=== PATIENT | male | born 1965 | race Caucasian/White ===

== ENCOUNTER 2016-10-11 05:58 | Outpatient (CLI) | payer BC ==
[~2016-10-11] VITALS: Ht 170.2 cm; Wt 102.2 kg
--- NOTE | ~2016-10-11 | ECHO ---
Transthoracic Echocardiography Report (TTE) Demographics Patient Name BUCK STAHL Date of Study 10/11/2016 Patient Number [id number] Visit Number [id number] Date of 1965 Room Number G6399 Gender Male Number Age 51 year(s) Referring Shelby Scott Finance Controller Oliva Mcclellan, Physician A RT,RVT,RDCS Physician Interpreting Shelby Scott Engineer Internship Physician A MD Supervising Ordering Shelby Scott MD/MLP Physician A Nurse Stress Field Auditor Conclusions Contractility Score Summary Global Left Ventricular Hypokinesis was noted. Summary The estimated left ventricular ejection fraction is 40%. Procedure Type of Study TTE procedure:2D Echocardiogram, M-Mode, Doppler , Color Doppler. Procedure Date Date: 10/11/2016 Start: 06:49 AM Study Location: Echo Lab Technical Quality: Adequate visualization Indications:Left Bundle Branch Block (LBBB). Additional Indications:chest pain Appropriate Use Criteria: 9 Patient Status: Routine HR: 74 bpm BP: 142/84 mmHg Allergies - No known allergies. M-Mode/2D Measurements LV Diastolic Dimension: 5.33 cm LV Systolic Dimension: 4.12 cm LV Septum Diastolic: 1.08 cm LV Septum Systolic: 1.52 cm LV PW Diastolic: 0.9 cm LV PW Systolic: 1.34 cm Cardiac Output: 4.1 l/min AO Root Dimension: 2.6 cm LA Dimension: 3.9 cm EF Estimated: 40 % MV EPSS: 0.9 cm LVOT: 2.1 cm LVOT VTI: 16 cm LV Stroke volume: 55.39 ml Doppler Measurements AV Peak Velocity: 1.45 m/s MV Peak E-Wave: 0.67 m/s AV Peak Gradient: 8.41 mmHg MV Peak A-Wave: 0.78 m/s AV Mean Gradient: 4 mmHg MV E/A Ratio: 0.86 LVOT Peak Velocity: 0.87 m/s MV P1/2t: 64 msec PV Peak Velocity: 1.33 m/s E' Septal Velocity: 0.06 m/s PV Peak Gradient: 7.08 mmHg E' Lateral Velocity: 0.09 m/s A' Septal Velocity: 0.09 m/s MV E/E' Ratio: 12 A' Lateral Velocity: 0.1 m/s Findings Left Ventricle Normal left ventricle size Dyskinetic septum Right Ventricle Normal right ventricle structure and function. Left Atrium Normal left atrial size. Right Atrium Normal right atrial size. Mitral Valve Normal mitral valve structure and function. Aortic Valve Normal aortic valve structure and function. Tricuspid Valve Normal tricuspid valve structure and function. Pulmonic Valve Normal pulmonic valve structure and function. Pericardial Effusion No evidence of pericardial effusion. Miscellaneous Visualized portions of the aortic root and ascending aorta appear normal in size. Pleural Effusion No evidence of pleural effusion. Contractility Score LV regional wall motion:(0-Non visualized 1-Normal 2-Hypokinesis 3-Akinesis 4-Dyskinesis 5-Aneurysm) Signature dtt: Paolo Ryan dtd: 10/11/16 0649 Physician Self Edit
--- NOTE | ~2016-10-11 | CATH ---
Cardiac Diagnostic Report Demographics Patient Name MARIBETH Carpenter Gender Male Date of 1965 Age 51 year(s) Patient Number [id number] Date of Study 10/11/2016 Visit Number [id number] Room Number G6399 [place] [id number] Ht 170.18 cm Wt 105.24 kg Referring Salena Ariella JARA Primary Physician Physician Performing Efstratiou Secondary Physician Physician Tyler Thompson MD Diagnostic Efstratiou Assisting Physician Physician Tyler Thompson MD Interventional Physician Isotope Hydrologist Physician Findings and Conclusions Diagnostic Findings and Conclusion No Angiographic CAD. Diagnostic Recommendations He can proceed with Lithotripsy. Medical management for cardiomyopathy based on echo. Procedure Description The patient was brought to the diagnostic cardiac catheterization-EP laboratory in the fasting, non-sedated state. Informed consent was obtained in the written and verbal form after the risks and benefits were explained. The patient had no further questions and agreed to proceed. The planned puncture-incision site(s) were shaved and prepped with ChloraPrep and draped in the usual sterile manner. Conscious sedation, supplemental oxygen, and pain control medications were delivered by a registered nurse under physician guidance. Surface ECG rhythm, blood pressure measurement, and pulse oximetry were monitored throughout the procedure. Arterial access. The access site was infiltrated with lidocaine. The vessel was entered with the Seldinger technique. A sheath was advanced into the vessel and used for catheter placement. Selective left coronary angiography. A catheter was advanced into the left coronary vessel ostium under Fluoroscopic guidance. Contrast was injected by hand. Images were obtained in multiple projections. Selective right coronary angiography. A catheter was advanced into the right coronary vessel ostium under fluoroscopic guidance. Contrast was injected by hand. Images were obtained in multiple projections. Left heart catheterization. A catheter was advanced across the aortic valve to the left ventricle under fluoroscopic guidance. Resting hemodynamics were obtained. Arterial artery hemostasis was achieved. The patient was transferred to a regular nursing floor via cart accompanied by a nurse. The patient left the laboratory in stable condition. Diagnostic Cath Status: Elective Procedure Procedure Type Diagnostic procedure:Angiography:, Coronary Angios w/[facility] Indications: Abnormal Stress Test, Left Bundle Branch Block (LBBB), Chest pain, Hyperlipidemia, Dyspnea and pre surgical clearance. The procedure was explained in detail to the patient. Risks, complications and alternative treatments were reviewed. Written consent was obtained. Medications Reviewed with Patient prior to Procedure. Angiographic Findings Dominance: Right Cardiac Arteries and Lesion Findings LMCA: Normal (0% Stenosis). LAD: Normal (0% Stenosis). LCx: Normal (0% Stenosis). RCA: Normal (0% Stenosis). Procedure Data Procedure Date Date: 10/11/2016Start: 09:57 AMEnd: 10:15 AM Entry Locations - Percutaneous access was performed through the Right Radial artery (Primary location). A 6 Fr sheath was inserted. Hemostasis was successfully obtained using Mechanical Compression. Closure Comments: 14 ml's of air in radial band placed by Alvaro Aquino. Procedure Medications Order and Administration + + +-------+-------+ !Time !Medication !Dosage !Route ! + + +-------+-------+ !10/11/2016 !Versed !1 mg !I.V. ! !09:54 AM ! ! ! ! + + +-------+-------+ !10/11/2016 !Fentanyl !50 mcg !I.V. ! !09:54 AM ! ! ! ! + + +-------+-------+ !10/11/2016 !Versed !1 mg !I.V. ! !09:58 AM ! ! ! ! + + +-------+-------+ !10/11/2016 !PAE Radial Cocktail: Heparin 5000 units, ! !I.A. ! !10:00 AM !Nitroglycerin 200mcg, Verapamil 3 mg ! ! ! ! !(ACC_3) ! ! ! + + +-------+-------+ !10/11/2016 !Oxygen !2 l/min!NC ! !10:05 AM ! ! ! ! + + +-------+-------+ !10/11/2016 !Oxygen ! !NC ! !10:15 AM ! ! ! ! + + +-------+-------+ Devices Used - A6 Fr. BS JR 4 Diag. Catheterwas used for:Right coronary angiography. - A6 Fr. BS JL 3.5 Diag. Catheterwas used for:Left coronary angiography. Contrast Material - Isovue 31578 ml Fluoroscopy Time: Diagnostic: 3:24 minutes. Total: 3:24 minutes. Fluoroscopy Dose: Diagnostic: 552 mGy. Total: 552 mGy. Estimated Blood Loss: 10 ml. Medical History Performed Procedures and Imaging Results - Stress testing with SPECT MPIwas performed. Results were: Positive. Risk/Extent of ischemia was: Intermediate risk. Allergies - No known allergies. Risk Factors The patient risk factors include:diet-treated diabetes mellitus, last creatinine: 1.6 mg/dl, creatinine clearance: 79.47 ml/min and dyslipidemia. Admission Data Admission Date: 10/11/2016 Admission Time: 05:58 AM Admit Source: Other Insurance Payors: Private health insurance. Admission Medications + +------+-------+ + + + + !Medication!Dosage!Times !Last !Last !Administered !Comments ! ! ! !Per Day!Delivery !Delivery ! ! ! ! ! ! !Date !Time ! ! ! + +------+-------+ + + + + !Aspirin ! ! ! ! !Yes ! ! !(any) ! ! ! ! ! ! ! + +------+-------+ + + + + !Statin ! ! ! ! !Yes ! ! !(any) ! ! ! ! ! ! ! + +------+-------+ + + + + Clinical Evaluation Leading to Procedure - The patient's CAD presentation was assessed as: Unstable angina. - The reason for the patient's clinical laboratory science professor visit is pre-operative evaluation before non-cardiac surgery. Snapshots Hemodynamics Condition: Rest O2 Consumption: Estimated: 261.69Heart Rate: 77 bpm Pressures (mmHg) +-----+ + !Site !Pressure ! +-----+ + !LV !97/5 ,6 ! +-----+ + !LV !96/2 ,4 ! +-----+ + !AO !93/61 (73) ! +-----+ + !LV !94/2 ,3 ! +-----+ + !AO !93/60 (73) ! +-----+ + Valve Gradients and Areas + +---------+---------+---------+ +---------+ + !Valve !Peak !Mean !Area !Index !Flow !Source ! + +---------+---------+---------+ +---------+ + !Aortic !3 !0 ! ! ! ! ! + +---------+---------+---------+ +---------+ + !Aortic !3 !0 ! ! ! ! ! + +---------+---------+---------+ +---------+ + Shunts Oxygen Values O2 Capacity 195.84 O2 Consumption 261.69 Signatures dtt: Paolo Ryan dtd: 10/11/16 0957 Physician Self Edit
[~2016-10-11 05:58] MED LIST: ADVAIR 250-501 EACH INH; ALLEGRA-D 24 H1 EACH PO; ASPIRIN EC81 MG PO; CENTRUM SILVER1 TAB PO; FLOMAX0.4 MG PO; FLONASE 50 MCG/16 GM NOSE; LIPITOR40 MG PO; NITROSTAT0.4 MG SL; PERCOCET 5-3251 EACH PO; PROAIR HFA8.5 GM INH; ZINC50 M2 PO
[2016-10-11 06:53] LABS: BASOPHIL # 0.1 K/uL (0.0-0.2); BASOPHIL % 0.9 %; EOSINOPHIL # 0.3 K/uL (0.0-0.5); EOSINOPHIL % 4.2 %; HEMATOCRIT 43.3 % (37.0-53.0); HEMOGLOBIN 14.4 g/dL (12.0-17.0); IMMATURE GRANULOCYTE % 0.4 %; LYMPHOCYTE # 2.3 K/uL (0.8-4.0); LYMPHOCYTE % 29.5 %; MCH 29.4 pg (27.0-34.0); MCHC 33.3 gm/dL (32.0-36.5); MCV 88.4 fl (83.0-98.0); MONOCYTE # 0.6 K/uL (0.0-1.0); MONOCYTE % 7.3 %; MPV 9.3 fl (9.4-12.4); NEUTROPHIL # (ANC) 4.6 K/uL (1.4-9.0); NEUTROPHIL % 57.7 %; NRBC % 0 /100WBC (0-0.00); PLATELET COUNT 249 K/uL (150-450); RDW-CV 13.1 % (11.9-14.6); WBC 7.9 K/uL (4.0-11.0)
[2016-10-11 07:01] LABS: INR - (THERAPEUTIC) 1.02 (0.92-1.07); PROTIME 10.7 SECONDS (9.8-11.4); PTT 28 SECONDS (25-32)
[2016-10-11 07:12] LABS: ALBUMIN 3.5 gm/dL (3.5-5.0); ANION GAP 7.5 (10.0-19.0); CALCIUM 9.1 mg/dL (8.5-10.5); CREATININE 1.6 mg/dL (0.6-1.3); POTASSIUM 4.5 mMol/L (3.7-5.1); TOTAL BILIRUBIN 0.5 mg/dL (0.0-1.5); TOTAL PROTEIN 7.5 g/dL (6.0-8.4)
[2016-10-11] MEDS ORDERED: COREG 3.1253.125 MG PO (11:52)
== END 2016-10-11 14:30 | disposition disaster alternative care site (69) ==
LOC: GPCU 05:58 → GCAT 05:58 → GPOC 06:00 → GCAT 14:30
PROVIDERS: Internal Medicine Cardiovascular Disease
PROC: B2111ZZ Fluoroscopy of Multiple Coronary Arteries using Low Osmolar Contrast (ICD-10-PCS; principal; 2016-10-11)
PROC: 4A023N7 Measurement of Cardiac Sampling and Pressure, Left Heart, Percutaneous Approach (ICD-10-PCS; principal; 2016-10-11)
DX: I20.0 Unstable angina (principal); I42.9 Cardiomyopathy, unspecified; E78.5 Hyperlipidemia, unspecified; N20.0 Calculus of kidney; I12.9 Hypertensive chronic kidney disease with stage 1 through stage 4 chronic kidney disease, or unspecified chronic kidney disease; E11.22 Type 2 diabetes mellitus with diabetic chronic kidney disease; N18.9 Chronic kidney disease, unspecified; I44.7 Left bundle-branch block, unspecified; R94.39 Abnormal result of other cardiovascular function study; Z79.51 Long term (current) use of inhaled steroids; Z79.82 Long term (current) use of aspirin; Z79.891 Long term (current) use of opiate analgesic; Z79.899 Other long term (current) drug therapy
CPT/HCPCS: J1644; J2250; J3010; J7030; J7060